=== PATIENT | female | born 1965 ===

== ENCOUNTER 2024-03-19 10:24 | Observation (INO) ==
[2024-03-19] MEDS ORDERED: ACETAMINOPHEN 325 MG TABLET PO PRN (12:20)
[2024-03-19] MEDS ORDERED: ONDANSETRON 4 MG/2 ML VIAL IV PRN (12:20)
[2024-03-19] MEDS ORDERED: oxyCODONE IR 5 MG TABLET PO PRN (12:20)
[2024-03-19] MEDS ORDERED: traZODone HCL 50 MG TABLET PO PRN (12:20)
[2024-03-19] MEDS ORDERED: IPRATROPIUM/ALBUTEROL 3 ML AMPUL.NEB NEB PRN ×2 (12:20→15:13)
[2024-03-19] MEDS: morphine 4 MG/ML VIAL IV PRN ×2 (12:38→18:09)
[2024-03-19] MEDS: 0.9 % SODIUM CHLORIDE 1,000 ML IV SCH (12:38)
[2024-03-19] MEDS ORDERED: KETAMINE 50 MG/ML Syringe IV ONE (13:12)
[2024-03-19 13:13] LABS: Basophils # (Auto) 0.02 K/mcL (0.00-0.30); Basophils % (Auto) 0.2 % (0.0-2.0); Eosinophils # (Auto) 0.06 K/mcL (0.00-0.70); Eosinophils % (Auto) 0.7 % (0.0-7.0); Hematocrit 38.9 % (34.1-44.9); Hemoglobin 12.3 g/dL (11.2-15.7); Lymphocytes # (Auto) 1.97 K/mcL (1.50-4.80); Mean Cell Volume 85.3 fL (80.0-100.0); Mean Corpuscular HGB Conc 31.6 g/dL (31.0-36.0); Mean Platelet Volume 10.9 fL (8.8-12.5); Monocytes # (Auto) 0.62 K/mcL (0.10-0.90); Monocytes % (Auto) 7.2 % (1.0-12.0); Neutrophils % (Auto) 68.8 % (38.0-78.0); Platelet Count 243 K/mcL (140-440); RBC 4.56 M/mcL (3.59-5.38); Red Cell Distribution Width 14.4 % (11.5-14.5); WBC 8.6 K/mcL (4.5-11.0)
[2024-03-19] MEDS ORDERED: DEXAMETHASONE 10 MG/ML VIAL ONE (13:13)
[2024-03-19] MEDS ORDERED: ONDANSETRON 4 MG/2 ML VIAL ONE (13:13)
[2024-03-19] MEDS ORDERED: LIDOCAINE 2% PF 5 ML VIAL ONE (13:13)
[2024-03-19] MEDS ORDERED: MAGNESIUM SULFATE 2 GM/50 ML BAG IV ONE (13:13)
[2024-03-19] MEDS ORDERED: PROPOFOL 200 MG/20 ML VIAL IV ONE (13:13)
[2024-03-19 13:35] LABS: Blood Urea Nitrogen 9 mg/dL (6-20); Calcium 8.6 mg/dL (8.6-10.4); Carbon Dioxide 27 mmol/L (22-30); Chloride 107 mmol/L (96-108); Glomerular Filtration Rate 81; Glucose 97 mg/dL (70-105); Potassium 4.1 mmol/L (3.3-5.1); Sodium 141 mmol/L (133-145)
[2024-03-19] MEDS: ceFAZolin 3 GM in DEXTROSE 5% IN WATER 50 ML IV SCH (13:54)
[2024-03-19] MEDS ORDERED: HYDROmorphone 1 MG/ML SYRINGE ONE (14:09)
[2024-03-19] MEDS ORDERED: diphenhydrAMINE 50 MG/ML VIAL IV PRN (15:13)
[2024-03-19] MEDS ORDERED: KETOROLAC 30 MG/ML VIAL IV PRN (15:13)
[2024-03-19] MEDS ORDERED: MEPERIDINE 25 MG/ML VIAL IV PRN (15:13)
[2024-03-19] MEDS ORDERED: LACTATED RINGERS 250 ML IV PRN (15:13)
[2024-03-19] MEDS: ACETAMINOPHEN 1,000 MG/100 ML BAG IV ONE (16:05)
[2024-03-19] MEDS ORDERED: ONDANSETRON 4 MG ODT TABLET SL PRN (16:15)
[2024-03-19] MEDS ORDERED: FLEETS ADULT 1 DOSE ENEMA PR PRN (16:15)
[2024-03-19] MEDS ORDERED: BENZOCAINE/MENTHOL 1 LOZENGE PO PRN (16:15)
[2024-03-19] MEDS ORDERED: BISACODYL 10 MG SUPP.RECT PR PRN (16:15)
[2024-03-19] MEDS ORDERED: MAGNESIUM HYDROXIDE 30 ML ORAL.SUSP PO PRN (16:15)
[2024-03-19] MEDS: ONDANSETRON 4 MG/2 ML VIAL IV PRN (16:20)
[2024-03-19] MEDS: fentaNYL 100 MCG/2 ML VIAL IV PRN (16:26)
[2024-03-19] MEDS: HYDROmorphone 0.5 MG/0.5 ML SYRINGE IV PRN (16:44)
[2024-03-19] MEDS: LACTATED RINGERS 1,000 ML IV SCH (17:04)
[2024-03-19] MEDS: ceFAZolin 2 GM in DEXTROSE 5% IN WATER 50 ML IV SCH ×2 (17:19→18:04)
[2024-03-19] MEDS: 0.45 % SODIUM CHLORIDE 1,000 ML IV SCH (17:20)
[2024-03-19] MEDS: 0.9 % SODIUM CHLORIDE 10 ML SYRINGE IV SCH (17:20)
[2024-03-19] MEDS: KETOROLAC 30 MG/ML VIAL IV PRN (18:14)
[2024-03-19] MEDS ORDERED: ESZOPICLONE 2 MG PO PRN (20:03)
[2024-03-19] MEDS ORDERED: HYDROcodone/APAP 5/325MG TABLET PO PRN (20:05)
[2024-03-19] MEDS: NITROFURANTOIN SR 100 MG CAPSULE PO SCH (20:08)
[2024-03-19] MEDS: ASPIRIN 81 MG TAB.CHEW PO SCH (20:08)
[2024-03-19] MEDS: DOCUSATE SODIUM 100 MG CAPSULE PO SCH (20:08)
[2024-03-19] MEDS: CYCLOBENZAPRINE 10 MG TABLET PO SCH (20:08)
[2024-03-19] MEDS: SENNOSIDES 1 TABLET PO SCH (20:08)
[2024-03-19] MEDS ORDERED: DOCUSATE SODIUM 100 MG CAPSULE PO SCH (21:00)
[2024-03-19] MEDS ORDERED: SENNOSIDES 1 TABLET PO SCH (21:00)
[2024-03-19] MEDS: ceFAZolin 1 GM VIAL IV SCH (21:37)
[2024-03-20] MEDS: HYDROcodone/APAP 10/325MG TABLET PO PRN (04:55)
[2024-03-20 07:12] LABS: Basophils # (Auto) 0.01 K/mcL (0.00-0.30); Basophils % (Auto) 0.1 % (0.0-2.0); Eosinophils # (Auto) 0 K/mcL (0.00-0.70); Eosinophils % (Auto) 0 % (0.0-7.0); Hematocrit 33.5 % (34.1-44.9); Hemoglobin 10.8 g/dL (11.2-15.7); Lymphocytes # (Auto) 1.28 K/mcL (1.50-4.80); Lymphocytes % (Auto) 13.7 % (15.5-49.0); Mean Cell Volume 84.6 fL (80.0-100.0); Mean Corpuscular HGB Conc 32.2 g/dL (31.0-36.0); Mean Platelet Volume 11.6 fL (8.8-12.5); Monocytes # (Auto) 0.65 K/mcL (0.10-0.90); Monocytes % (Auto) 6.9 % (1.0-12.0); Platelet Count 241 K/mcL (140-440); RBC 3.96 M/mcL (3.59-5.38); Red Cell Distribution Width 14.4 % (11.5-14.5); WBC 9.4 K/mcL (4.5-11.0)
[2024-03-20 07:29] LABS: Blood Urea Nitrogen 14 mg/dL (6-20); Calcium 8.4 mg/dL (8.6-10.4); Carbon Dioxide 19 mmol/L (22-30); Chloride 103 mmol/L (96-108); Glomerular Filtration Rate 70; Glucose 141 mg/dL (70-105); Potassium 3.6 mmol/L (3.3-5.1); Sodium 135 mmol/L (133-145)
[2024-03-20] MEDS: OMEPRAZOLE 20 MG CAPSULE PO SCH (07:58)
[2024-03-20] MEDS: FLUoxetine HCL 20 MG CAPSULE PO SCH (08:29)
[2024-03-20] MEDS: POLYETHYLENE GLYCOL 3350 17 GM PACKET PO PRN (11:59)
[2024-03-20] MEDS: ZOLPIDEM 5 MG TABLET PO PRN (22:25)
== END 2024-03-22 11:40 | disposition home health service (06) ==
LOC: MEDSUR
PROVIDERS: ADMIT Internal Medicine; ATTEND Internal Medicine